=== PATIENT | female | born 1950 | race Caucasian/White ===

== ENCOUNTER 2016-09-03 23:28 | Emergency (ER) | payer BC, MEDICARE ==
[2016-09-03 23:49] VITALS: BP 155/85; PULSE 76; RESP 16; TEMP 98.1; O2SAT 98
[2016-09-04] MEDS ORDERED: FLUT1SPR14 (00:01)
[2016-09-04] MEDS ORDERED: LOVA20TA PO (00:01)
[2016-09-04] MEDS ORDERED: OMEP40CA2 PO (00:01)
[2016-09-04] MEDS ORDERED: FURO40TA PO (00:01)
[2016-09-04] MEDS ORDERED: SPIR50TA PO (00:01)
[2016-09-04] MEDS ORDERED: TYLE325T PO (00:01)
[2016-09-04] MEDS ORDERED: LEVO112T2 PO (00:01)
[2016-09-04] MEDS ORDERED: CITA10TA4 PO (00:01)
[2016-09-04] MEDS ORDERED: CELE1CAP8 PO (00:01)
[2016-09-04] MEDS ORDERED: CALC1TAB77 PO (00:01)
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
== END 2016-09-04 04:34 | disposition home or self-care (01) ==
LOC: NEPE 23:28
DX: S09.90XA Unspecified injury of head, initial encounter (principal); S16.1XXA Strain of muscle, fascia and tendon at neck level, initial encounter; W50.0XXA Accidental hit or strike by another person, initial encounter; Y92.39 Other specified sports and athletic area as the place of occurrence of the external cause
CPT/HCPCS: 70450; 72125